=== PATIENT | male | born 1985 | race African-American/Black ===

== ENCOUNTER 2018-12-19 03:12 | Emergency (ER) | payer OTHER ==
[~2018-12-19] VITALS: Ht 170.2 cm; Wt 59.0 kg
[2018-12-19] MEDS ORDERED: NOHOMEMEDICATIONS (03:26)
[2018-12-19 04:42] VITALS: BP 115/73
== END 2018-12-19 04:44 | disposition home or self-care (01) ==
LOC: ER 03:12
DX: S09.8XXA Other specified injuries of head, initial encounter (principal); F19.90 Other psychoactive substance use, unspecified, uncomplicated; Z88.6 Allergy status to analgesic agent; W18.2XXA Fall in (into) shower or empty bathtub, initial encounter; Y92.89 Other specified places as the place of occurrence of the external cause; Y93.89 Activity, other specified; Y99.8 Other external cause status